=== PATIENT | female | born 1945 | race Caucasian/White ===

== ENCOUNTER → 2016-08-13 | Day surgery (SDC) | payer OTHER ==
[2016-07-30 09:13] VITALS: Ht 160 cm; Wt 68.2 kg
[~2016-08-13] VITALS: Ht 160 cm; Wt 68.2 kg
[~2016-08-13] MED LIST: 500ML BSS 0.3ML EPI 1:1000PF IRRIG ONE; ACETAMINOPHEN 325 MG TAB PO PRN; AMVISC PLUS 0.8ML SYRINGE INT OCU ONE; ATROPINE SULFATE 0.1 MG/ML 5ML SYR IV PRN; BEET JUICE PO; BRIMONIDINE TART 0.2% OP SOLN PER DROP CHARGE ONE; BSS FLUSH ONE; CHOL100010 PO; CIPR0.3S OPL; DORZ1SOL6 OPL; ENDOCOAT 0.85ML SYRINGE INT OCU ONE; EpHEDrine SULFATE INJ 50 MG/ML AMP IV PRN; EpINEphrine INJ 1MG/ML AMP 1 MG/ML AMP ONE; LACTATED RINGER'S 1000ML 500 ML IV SCH; LIDOCAINE 4% OP SOLN DROP CHARGE ONE; LIDOCAINE 4% OP SOLN DROP CHARGE OPR SCH; LIDOCAINE HCL 1% MPF 2 ML VIAL ONE; MIDAZOLAM HCL 1 MG/ML 2ML VIAL ONE; MOXIFLOXACIN OPH SOLN PER DROP CHARGE ONE; POTA99TA PO; POVIDONE-IODINE OP SOLN 30 ML BTL ONE; PRED1SUS17 OPL; PROB1TAB16 PO; PROPARACAINE 0.5% OP SOLN PER DROP CHARGE OPR SCH; TOBRAMYCIN/DEXAMETHASONE OPH OINT PER APPLN CHARGE ONE; TRAV0.00 OPB; [UNRECOGNIZED DRUG - OTHER] PO; [UNRECOGNIZED DRUG - OTHER] PO; [UNRECOGNIZED DRUG - OTHER] PO; [UNRECOGNIZED DRUG - OTHER] PO; [UNRECOGNIZED DRUG - OTHER] PO; [UNRECOGNIZED DRUG - OTHER] PO; [UNRECOGNIZED DRUG - OTHER] PO; [UNRECOGNIZED DRUG - OTHER] PO
[2016-08-13] MEDS: PHENYLEPHRINE HCL 2.5% OP SOLN PER DROP CHARGE OPR SCH ×2 (09:46→09:51)
[2016-08-13] MEDS: TROPICAMIDE 1% OP SOLN PER DROP CHARGE OPR SCH ×2 (09:47→09:52)
[2016-08-13] MEDS: CYCLOPENTOLATE HCL 1% OP SOLN PER DROP CHARGE OPR SCH ×2 (09:48→09:53)
--- NOTE | 2016-08-13 09:48 | History & Physical Bridge - [place] ---
H&P Re-Evaluation Bridge Note: I have examined the patient, reviewed the History & Physical and in the interval since the performance of the History & Physical I have noted the following changes of clinical significance: No changes noted
[2016-08-13] MEDS: KETOROLAC 0.5% OP SOLN PER DROP CHARGE OPR SCH ×2 (09:49→09:54)
[2016-08-13] MEDS: MOXIFLOXACIN OPH SOLN PER DROP CHARGE OPR SCH ×2 (09:50→10:00)
--- NOTE | 2016-08-13 10:43 | [facility] Post Operative Brief Note ---
Immediate Operative Summary Operative Date Aug 13, 2016. Pre-Operative Diagnosis Cataract right eye Post-Operative Diagnosis same Procedure(s) Performed Right Cataract Phacoemulsification With Intraocular Lens Implant Surgeon Dr Flor Polysomnographic Technologist Surgeon(s) 0 Estimated Blood Loss 0 Findings cataract right eye Specimens 0 Complication(s) None Disposition Recovery Room / PACU
--- NOTE | 2016-08-13 10:43 | Discharge Instructions-SurgCtr ---
Discharge Instructions Date of Service Aug 13, 2016. Visit Reason for Visit: Cataract Right Eye Discharge Discharge Diagnosis / Problem: cataract right eye Discharge Goals Goal(s): Improve function Activity Recommendations Activity Limitations: per Instructions/Follow-up section Lifting Limitations: no more than 5 pounds Anesthesia . Post Anesthesia Instructions: If you have had General Anesthesia or IV Sedation: * Do not drive today. * Resume driving when surgeon permits. * Do not make important decisions or sign legal documents today. * Call surgeon for: 1. Temperature elevations greater than 101 degrees F. 2. Uncontrollable pain. 3. Excessive bleeding. 4. Persistent nausea and vomiting. 5. Medication intolerance (nausea, vomiting or rash). * For nausea and vomiting use only clear liquids such as: tea, soda, bouillon until nausea subsides, then gradually increase diet as tolerated. * If you have any concerns or questions, call your surgeon's office. If physician is unavailable and it is an emergency, call 911 or go to the nearest emergency room. . Instructions / Follow-Up Instructions / Follow-Up ACTIVITY RECOMMENDATIONS: * Light activities * You may walk outside, read, watch television. * Mild irritation and blurred vision are common for the first few days, redness around the white part of the eye is common. MEDICATIONS: Resume previous medications unless instructed otherwise by your surgeon. Eye drops (today and tomorrow): Cipro - one drop in operative eye every 2 hours while awake Prednisolone 1% - one drop in operative eye every 2 hours while awake Bromfenac - one drop in operative eye once daily Travatan - one drop in both eyes nightly SPECIAL CARE INSTRUCTIONS: * If any problems or concerns, please call Dr. Flor's office at . * Keep plastic shield taped over eye to sleep at night. * Keep plastic shield taped over eye except to administer eye drops. * Keep plastic shield on until office visit the following day. FOLLOW UP VISIT: Follow-up with Dr. Flor in the [place] office as scheduled. If not already scheduled, please call the office at . Diet Recommendations Home Diet: resume previous diet Procedures Procedures Performed: Right Cataract Phacoemulsification With Intraocular Lens Implant Pending Studies Studies pending at discharge: no Medical Emergencies . Who to Call and When: Medical Emergencies: If at any time you feel your situation is an emergency, please call 911 immediately. . Non-Emergent Contact Non-Emergency issues call your: Width Stripper . . "Provider Documentation" section prepared by Reji Flor.
--- NOTE | 2016-08-13 11:01 | Anesthesia Progress Nt - [facility] ---
Anesthesia Post Op Note Date & Time Aug 13, 2016 at 11:01 Vital Signs Pain Intensity: 0 Vital Signs Past 12 Hours Date Time Temp Pulse Resp B/P Pulse Ox O2 Delivery O2 Flow Rate FiO2 08/13/16 10:44 36.6 62 12 151/83 94 Room Air 08/13/16 10:02 189/97 08/13/16 09:39 36.5 66 16 215/108 99 Room Air Notes Mental Status: alert / awake / arousable, participated in evaluation Pt Amnestic to Procedure: Yes Nausea / Vomiting: adequately controlled Pain: adequately controlled Airway Patency, RR, SpO2: stable & adequate BP & HR: stable & adequate Hydration State: stable & adequate Anesthetic Complications: no major complications apparent
[2016-08-13 11:13] VITALS: BP 147/89; PULSE 58; TEMP 36.5; O2SAT 94
--- NOTE | 2016-08-13 11:21 | OPERATIVE REPORT ---
DATE OF OPERATION: 08/13/2016 PREOPERATIVE DIAGNOSIS: Cataract, right eye. POSTOPERATIVE DIAGNOSIS: Cataract, right eye. PROCEDURE: Phacoemulsification cataract extraction with intraocular lens placement, right eye. SURGEON: Dr. Flor. COMPLICATIONS: None. ESTIMATED BLOOD LOSS: None. ANESTHESIA: Topical with sedation. OPERATION AND FINDINGS: After informed consent was obtained in the holding area the patient was wheeled back to the Operating Room where cardiac monitoring leads and oxygen by nasal cannula was administered by Anesthesia. Gentle IV sedation was given, and the patient's right eye was prepped and draped in usual sterile fashion. A wire lid speculum was placed into the right eye and the operating microscope was swung into position. Using 0.12 forceps and a Supersharp blade a paracentesis port was made 3 o'clock hours away from the 9 o'clock position of patient's right eye. 1% non-preserved Lidocaine was then injected into the anterior chamber for anesthesia. A 2.2 mm keratotome blade was then used to make a shelved clear corneal incision at the 9 o'clock position of her right eye. Amvisc was injected into the anterior chamber and a cystotome and Utrata forceps were used to perform a curvilinear capsulorrhexis. BSS on a hydrodissection cannula was used to hydrodissect the lens nucleus away from the capsular bag. The phacoemulsification handpiece was then used in a stop and chop fashion to remove the lens nucleus. The irrigation and aspiration handpiece was then used to remove the residual cortical material. Amvisc was injected into the capsular bag and anterior chamber and a Bausch \T\ Lomb MX60 18.0 Diopter intraocular lens was injected into the capsular bag. Irrigation and aspiration handpiece was used to remove the residual viscoelastic material. The wounds were hydrated and noted to be watertight. The wire lid speculum was removed from the eye. Vigamox, Brimonidine, and TobraDex ointment were placed on the eye and it was shielded. It should be noted that EndoCoat was used during the case to protect the cornea endothelium. DISPOSITION: The patient tolerated the procedure well and was wheeled to the post anesthesia care unit in stable condition. I attest to the content of the Intraoperative Record and any orders documented therein. Any exceptions are noted below. I attest to the content of the Intraoperative Record and any orders documented therein. Any exceptio ns are noted below.
== END | disposition home or self-care (01) ==
LOC: X.SURG 09:28
PROVIDERS: ATTEND Ophthalmology
DX: H25.11 Age-related nuclear cataract, right eye (principal)

== ENCOUNTER → 2016-09-05 | Outpatient (CLI) | payer OTHER ==
[~2016-09-05] MED LIST changes: -500ML BSS 0.3ML EPI 1:1000PF IRRIG ONE; -ACETAMINOPHEN 325 MG TAB PO PRN; -AMVISC PLUS 0.8ML SYRINGE INT OCU ONE; -ATROPINE SULFATE 0.1 MG/ML 5ML SYR IV PRN; -BRIMONIDINE TART 0.2% OP SOLN PER DROP CHARGE ONE; -BSS FLUSH ONE; -ENDOCOAT 0.85ML SYRINGE INT OCU ONE; -EpHEDrine SULFATE INJ 50 MG/ML AMP IV PRN; -EpINEphrine INJ 1MG/ML AMP 1 MG/ML AMP ONE; -LACTATED RINGER'S 1000ML 500 ML IV SCH; -LIDOCAINE 4% OP SOLN DROP CHARGE ONE; -LIDOCAINE 4% OP SOLN DROP CHARGE OPR SCH; -LIDOCAINE HCL 1% MPF 2 ML VIAL ONE; -MIDAZOLAM HCL 1 MG/ML 2ML VIAL ONE; -MOXIFLOXACIN OPH SOLN PER DROP CHARGE ONE; -POVIDONE-IODINE OP SOLN 30 ML BTL ONE; -PROPARACAINE 0.5% OP SOLN PER DROP CHARGE OPR SCH; -TOBRAMYCIN/DEXAMETHASONE OPH OINT PER APPLN CHARGE ONE
[2016-09-05 12:12] LABS: BASO % 0.5 %; BASO ABS # 0.03 K/uL (0-0.2); COMPLETE YES; EOS % 3.1 %; HEMATOCRIT 39.9 % (37-47); IG% 0.3 %; LYMPH % 40.3 %; LYMPH ABS # 2.45 K/uL (1.2-3.4); MEAN CELL VOLUME 102.3 fL (80-100); MEAN CORPUSCULAR HEMOGLOBIN 34.9 pg (25-34); MEAN CORPUSCULAR HGB CONC 34.1 g/dl (32-36); MEAN PLATELET VOLUME 10.2 fL (7.4-10.4); MONO % 11.7 %; NEUT % 44.1 %; PLATELET COUNT 214 K/uL (130-400); WHITE BLOOD COUNT 6.08 K/uL (4.8-10.8)
[2016-09-05 12:38] LABS: ALKALINE PHOSPHATASE 69 U/L (45-117); ALT/SGPT 24 U/L (12-78); AST/SGOT 14 U/L (15-37); BLOOD UREA NITROGEN 19 mg/dl (7-18); BUN/CREATININE RATIO 19.8 (10-20); CALCIUM 9.3 mg/dl (8.5-10.1); CARBON DIOXIDE 27 mmol/L (21-32); CHLORIDE 109 mmol/L (98-107); CHOLESTEROL 184 mg/dl (0-200); CHOLESTEROL/HDL RATIO 2.6; CREATININE 0.97 mg/dl (0.60-1.20); GLUCOSE 103 mg/dl (70-99); HDL CHOLESTEROL 72 mg/dl; LDL CHOLESTEROL CALCULATED 96 mg/dl; POTASSIUM 4.5 mmol/L (3.5-5.1); SODIUM 142 mmol/L (136-145); TRIGLYCERIDES 78 mg/dl (0-150); VERY LOW DENSITY LIPOPROT CALC 16 mg/dl
[2016-09-05 12:49] LABS: URINE APPEARANCE CLEAR (CLEAR); URINE BILIRUBIN NEG (NEG); URINE COLOR YELLOW; URINE NITRITE NEG (NEG); URINE SPECIFIC GRAVITY 1.016 (1.000-1.030); UROBILINOGEN NEG (NEG); ZZUR CULT IF INDIC CLEAN CATCH NO
[2016-09-05 13:03] LABS: MANUAL MICROSCOPIC REQUIRED? NO; REVIEW REQ? NO
--- NOTE | 2016-09-11 06:08 | CODING QUERY MEDICAL NECESSITY ---
SUPPORTING DIAGNOSIS NEEDED Dr. Magaña, A supporting diagnosis is required for the test/procedure performed on this patient in order for us to be reimbursed by the patient's insurance. Please provide a supporting diagnosis for the following test/procedure listed below next to the test name along with your signature. *If there is no additional diagnosis for this patient that would support the following test/procedure please document that below next to the test/procedure. Test(s)/Procedure(s) that require a supporting diagnosis: * ([id number]) VITAMIN D ASSAY DIAGNOSIS: DATE OF SERVICE: 09/05/16 Provider Signature: Date: Thank you Saud Michelle [facility] Information Management Once completed, please kindly fax back to [phone] For questions please call [phone]
== END | disposition home or self-care (01) ==
LOC: C.LABBFT 08:12
PROVIDERS: ATTEND Internal Medicine
DX: R53.83 Other fatigue (principal); Z13.6 Encounter for screening for cardiovascular disorders; M85.80 Other specified disorders of bone density and structure, unspecified site

== ENCOUNTER → 2016-09-06 | Outpatient (CLI) | payer OTHER | END | disposition home or self-care (01) | LOC: C.PAPS 13:46 | PROVIDERS: ATTEND Nurse Practitioner | DX: Z12.4 Encounter for screening for malignant neoplasm of cervix (principal); R87.610 Atypical squamous cells of undetermined significance on cytologic smear of cervix (ASC-US) ==

== ENCOUNTER → 2016-10-16 | Outpatient (CLI) | payer OTHER ==
[2016-10-16 17:43] LABS: BLOOD UREA NITROGEN 14 mg/dl (7-18); BUN/CREATININE RATIO 17.3 (10-20); CALCIUM 9.5 mg/dl (8.5-10.1); CARBON DIOXIDE 28 mmol/L (21-32); CHLORIDE 108 mmol/L (98-107); CREATININE 0.82 mg/dl (0.60-1.20); GLUCOSE 104 mg/dl (70-99); POTASSIUM 4.1 mmol/L (3.5-5.1); SODIUM 142 mmol/L (136-145)
== END | disposition home or self-care (01) ==
LOC: C.LABBFT 11:12
PROVIDERS: ATTEND Internal Medicine
DX: I10 Essential (primary) hypertension (principal)

== ENCOUNTER → 2017-02-07 | Outpatient (CLI) | payer OTHER ==
--- NOTE | 2017-02-07 15:38 | MAMMOGRAPHY REPORT ---
BILATERAL DIGITAL SCREENING MAMMOGRAM WITH CAD: 02/07/2017 CLINICAL HISTORY: Routine screening. Patient has no complaints. TECHNIQUE: Bilateral CC, MLO and left XCCL views were obtained. Current study was also evaluated wit h a Computer Aided Detection (CAD) system. COMPARISON: Comparison is made to exams dated: 02/01/2016 mammogram, 01/21/2015 mammogram, 11/27/2013 m ammogram, 10/23/2012 mammogram, 10/18/2011 mammogram, and 09/26/2010 mammogram - [facility] enter. BREAST COMPOSITION: There are scattered areas of fibroglandular density in both breasts. FINDINGS: There are minimal vascular calcifications and scattered benign round microcavitation calcif ications bilaterally. No suspicious mass, architectural distortion or cluster of suspicious microcal cifications is seen. IMPRESSION: ACR BI-RADS CATEGORY 1: NEGATIVE There is no mammographic evidence of malignancy. A 1 year screening mammogram is recommended. The pa tient will receive written notification of the results. Approximately 10% of breast cancers are not detected with mammography. A negative mammographic report should not delay biopsy if a clinically suggestive mass is present. Anny Mata M.D. ay/:02/07/2017 15:04:07 Firmware Software Verification Engineer: Lizzy HUMPHREY(Colten)(Isaura)([place]), [facility] letter sent: Normal 1/2 BI-RADS Code: ACR BI-RADS Category 1: Negative
== END | disposition home or self-care (01) ==
LOC: C.MAMM 14:01
PROVIDERS: ATTEND Internal Medicine
DX: Z12.31 Encounter for screening mammogram for malignant neoplasm of breast (principal)

== ENCOUNTER → 2017-03-21 | Outpatient (CLI) | payer OTHER ==
[2017-03-21 17:47] LABS: BASO % 0.6 %; BASO ABS # 0.04 K/uL (0-0.2); COMPLETE YES; EOS % 2.6 %; HEMATOCRIT 41.2 % (37-47); IG% 0.4 %; LYMPH % 37.2 %; LYMPH ABS # 2.62 K/uL (1.2-3.4); MEAN CELL VOLUME 104.6 fL (80-100); MEAN CORPUSCULAR HEMOGLOBIN 34.5 pg (25-34); MEAN PLATELET VOLUME 9.7 fL (7.4-10.4); MONO % 9.1 %; NEUT % 50.1 %; PLATELET COUNT 245 K/uL (130-400); RED BLOOD COUNT 3.94 M/uL (4.2-5.4); WHITE BLOOD COUNT 7.05 K/uL (4.8-10.8)
[2017-03-21 18:08] LABS: ALB/GLOB RATIO 0.9 (0.9-2); ALKALINE PHOSPHATASE 66 U/L (45-117); ALT/SGPT 21 U/L (12-78); AST/SGOT 15 U/L (15-37); BLOOD UREA NITROGEN 16 mg/dl (7-18); BUN/CREATININE RATIO 18.5 (10-20); CALCIUM 9.6 mg/dl (8.5-10.1); CARBON DIOXIDE 26 mmol/L (21-32); CHLORIDE 106 mmol/L (98-107); CREATININE 0.86 mg/dl (0.60-1.20); GLUCOSE 91 mg/dl (70-99); POTASSIUM 4.1 mmol/L (3.5-5.1); SODIUM 138 mmol/L (136-145)
[2017-03-21 18:17] LABS: URINE APPEARANCE CLEAR (CLEAR); URINE BILIRUBIN NEG (NEG); URINE COLOR YELLOW; URINE NITRITE NEG (NEG); URINE SPECIFIC GRAVITY 1.011 (1.000-1.030); UROBILINOGEN NEG (NEG); ZZUR CULT IF INDIC CLEAN CATCH NO
[2017-03-21 18:21] LABS: MANUAL MICROSCOPIC REQUIRED? NO; REVIEW REQ? NO
[2017-03-22 06:49] LABS: ESTIMATED AVERAGE GLUCOSE 114 mg/dl; HA1C FLAG Normal (Normal)
== END | disposition home or self-care (01) ==
LOC: C.LABBFT 11:52
PROVIDERS: ATTEND Internal Medicine
DX: R10.2 Pelvic and perineal pain (principal); R73.9 Hyperglycemia, unspecified

== ENCOUNTER → 2017-09-27 | Outpatient (CLI) | payer OTHER ==
[2017-09-27 12:07] LABS: BASO % 0.5 %; BASO ABS # 0.03 K/uL (0-0.2); EOS % 3.4 %; EOS ABS # 0.22 K/uL (0-0.5); HEMATOCRIT 39.5 % (37-47); HEMOGLOBIN 13.5 g/dL (12.0-16.0); IG# 0.02 K/uL (0.00-0.02); LYMPH % 40.3 %; LYMPH ABS # 2.61 K/uL (1.2-3.4); MEAN CELL VOLUME 102.3 fL (80-100); MEAN CORPUSCULAR HGB CONC 34.2 g/dl (32-36); MEAN PLATELET VOLUME 9.6 fL (7.4-10.4); MONO ABS # 0.52 K/uL (0.11-0.59); NEUT % 47.5 %; NEUT ABS # 3.07 K/uL (1.4-6.5); PLATELET COUNT 245 K/uL (130-400); RED CELL DISTRIBUTION WIDTH CV 14.8 % (11.5-14.5); RED CELL DISTRIBUTION WIDTH SD 55.4 fL (36.4-46.3); WHITE BLOOD COUNT 6.47 K/uL (4.8-10.8)
[2017-09-27 12:35] LABS: ALBUMIN 4.1 gm/dl (3.4-5.0); ALT/SGPT 24 U/L (12-78); AST/SGOT 18 U/L (15-37); BLOOD UREA NITROGEN 19 mg/dl (7-18); CARBON DIOXIDE 26 mmol/L (21-32); CREATININE 1.08 mg/dl (0.60-1.20); GLUCOSE 98 mg/dl (70-99); POTASSIUM 3.9 mmol/L (3.5-5.1); SODIUM 139 mmol/L (136-145)
[2017-09-27 12:46] LABS: ALKALINE PHOSPHATASE 70 U/L (45-117); TOTAL PROTEIN 8.1 gm/dl (6.4-8.2)
== END | disposition home or self-care (01) ==
LOC: C.LABBFT 07:31
PROVIDERS: ATTEND Internal Medicine
DX: R42 Dizziness and giddiness (principal)

== ENCOUNTER → 2017-10-21 | Outpatient (CLI) | payer OTHER | END | disposition home or self-care (01) | LOC: C.PAPS 16:41 | PROVIDERS: ATTEND Nurse Practitioner | DX: Z12.4 Encounter for screening for malignant neoplasm of cervix (principal) ==